=== PATIENT | male | born 1950 | race Caucasian/White ===

== ENCOUNTER 2019-03-06 17:13 | Inpatient (IN) ==
[2019-03-06] MEDS ORDERED: PIPERACILLIN/TAZOBACTAM 3.375 MG in SODIUM CHLORIDE 0.9% 100 ML IV STA (19:50)
[2019-03-06] MEDS ORDERED: ONDANSETRON 4 MG/2 ML VIAL IV PRN (19:52)
[2019-03-06] MEDS ORDERED: MORPHINE 4 MG/1 ML VIAL IV PRN (19:52)
[2019-03-06] MEDS ORDERED: PIPERACILLIN/TAZOBACTAM 3,375 MG in SODIUM CHLORIDE 0.9% 100 ML IV STA (19:59)
[2019-03-06] MEDS ORDERED: DEXTROSE 5% NACL 0.45% 1,000 ML IV SCH (20:00)
[2019-03-06] MEDS ORDERED: PIPERACILLIN/TAZOBACTAM 3,375 MG in SODIUM CHLORIDE 0.9% 100 ML IV SCH (20:00)
[2019-03-07] MEDS: LACTATED RINGERS 1,000 ML IV SCH ×3 (01:00→13:58)
[2019-03-07 05:18] LABS: Basophils % 0.3 % (0.0-0.8); Eosinophils # 0.1 10*3/uL (0.0-0.87); Eosinophils % 0.8 % (0.00-10.9); Hematocrit 43.8 VOL% (42.0-52.0); Hemoglobin 13.9 GM/DL (14.0-18.0); Immature Granulocytes % 0.4 %; Immature Granulocytes Absolute 0.03 #; Lymphocytes % 25.4 % (21.2-54.2); Mean Corpuscular HGB Conc 31.7 GM/DL (32-36); Mean Corpuscular Volume 90.5 FL (87-102); Mean Platelet Volume 10.2 FL (9.6-12.0); Monocytes % 8.1 % (1.7-12.7); Platelet Count 183 T/CUMM (130-400); Red Blood Count 4.84 MC/CUMM (3.8-5.5); Red Cell Distribution Width 14.6 % (9.3-17.3); White Blood Count 7.8 T/CUMM (4-12)
[2019-03-07 05:59] LABS: Albumin 3.1 G/DL (3.4-5.0); Bilirubin,Total 0.9 MG/DL (0.2-1.0); Calcium 8.8 MG/DL (8.5-10.1); Osmolality,Calculated 280.5 MOS/KG (273-304); Total Protein 5.6 G/DL (6.4-8.3)
[2019-03-07] MEDS: PANTOPRAZOLE 40 MG TABLET PO SCH (10:02)
[2019-03-08] MEDS: LACTATED RINGERS 1,000 ML IV SCH ×2 (04:16→12:55)
[2019-03-08] MEDS: PANTOPRAZOLE 40 MG TABLET PO SCH (10:08)
[2019-03-08 13:43] VITALS: BP 134/75
== END 2019-03-08 14:30 | disposition home or self-care (01) | DRG 390 ==
LOC: N.ED 17:13 → N.EDINP 17:13 → N.3E 21:30
PROVIDERS: ADMIT Student in an Organized Health Care Education/Training Program; ATTEND Student in an Organized Health Care Education/Training Program

== ENCOUNTER 2019-05-07 17:38 | Observation (INO) ==
[2019-05-07] MEDS ORDERED: SODIUM CHLORIDE 0.9% 500 ML IV STA (19:00)
[2019-05-07] MEDS ORDERED: PANTOPRAZOLE 40 MG VIAL IV STA (19:00)
[2019-05-07] MEDS ORDERED: HYDROmorphone 2 MG/1 ML VIAL IV STA (19:00)
[2019-05-07] MEDS ORDERED: ONDANSETRON 4 MG/2 ML VIAL IV STA (19:00)
[2019-05-07 19:19] LABS: Basophils % 0.2 % (0.0-0.8); Eosinophils % 0.3 % (0.00-10.9); Hematocrit 43.7 VOL% (42.0-52.0); Hemoglobin 14.6 GM/DL (14.0-18.0); Immature Granulocytes % 0.8 %; Immature Granulocytes Absolute 0.08 #; Lymphocytes # 2.5 10*3/uL (1.4-4.0); Lymphocytes % 25.9 % (21.2-54.2); Mean Corpuscular HGB Conc 33.4 GM/DL (32-36); Mean Corpuscular Volume 87.6 FL (87-102); Monocytes % 7.8 % (1.7-12.7); Platelet Count 198 T/CUMM (130-400); Red Blood Count 4.99 MC/CUMM (3.8-5.5); Red Cell Distribution Width 14.2 % (9.3-17.3); White Blood Count 9.8 T/CUMM (4-12)
[2019-05-07 19:32] LABS: Albumin 3.4 G/DL (3.4-5.0); Bilirubin,Total 0.6 MG/DL (0.2-1.0); Osmolality,Calculated 262.7 MOS/KG (273-304); Total Protein 6.5 G/DL (6.4-8.3)
[2019-05-07] MEDS ORDERED: ALBUTEROL/IPRATROPIUM 3 ML NEB RESP TX STA (19:52)
[2019-05-07] MEDS ORDERED: methylPREDNISolone SOD SUC 125 MG/2 ML VIAL IV STA (19:52)
[2019-05-07 22:32] LABS: Apearance,Urine CLEAR (Clear); Bilirubin,Urine Negative (Negative); Blood, Urine Moderate mg/dL (Negative); Glucose,Urine (UA) Negative (Negative); Ketones,Urine 5 mg/dL (Negative); Nitrite,Urine Negative (Negative); Protein,Urine Negative; RBC,Urine 2 /HPF (0-4); Urine Color Straw (Yellow); Urine Specific Gravity 1.026 (1.001-1.035); Urine Urobilinogen < 2.0 EU/DL (0.2-1.0); WBC,Urine <1 /HPF (0-6)
[2019-05-08] MEDS ORDERED: ONDANSETRON 4 MG/2 ML VIAL IV PRN (01:00)
[2019-05-08] MEDS ORDERED: NICOTINE 21 MG/24 HR PATCH TRANSDERM PRN (01:00)
[2019-05-08] MEDS ORDERED: BISACODYL 5 MG TABLET PO PRN (01:00)
[2019-05-08] MEDS ORDERED: GLUCAGON 1 MG VIAL IM PRN (01:00)
[2019-05-08] MEDS ORDERED: BISACODYL 10 MG SUPP RECTAL PRN (01:00)
[2019-05-08] MEDS ORDERED: DEXTROSE 50% 25 GM/50 ML VIAL IV PRN (01:00)
[2019-05-08] MEDS: SODIUM CHLORIDE 0.9% 1,000 ML IV SCH ×3 (01:35→17:40)
[2019-05-08 05:43] LABS: Hematocrit 43.1 VOL% (42.0-52.0); Hemoglobin 13.9 GM/DL (14.0-18.0); Immature Granulocytes % 0.3 %; Immature Granulocytes Absolute 0.02 #; Lymphocytes # 0.8 10*3/uL (1.4-4.0); Lymphocytes % 13.4 % (21.2-54.2); Mean Corpuscular HGB Conc 32.3 GM/DL (32-36); Mean Corpuscular Volume 89.4 FL (87-102); Mean Platelet Volume 10.2 FL (9.6-12.0); Monocytes % 1.2 % (1.7-12.7); Neutrophils % 85.1 % (38.7-73.9); Platelet Count 172 T/CUMM (130-400); Red Blood Count 4.82 MC/CUMM (3.8-5.5); Red Cell Distribution Width 14.3 % (9.3-17.3); White Blood Count 6.1 T/CUMM (4-12)
[2019-05-08 05:56] LABS: Calcium 8.9 MG/DL (8.5-10.1); Osmolality,Calculated 274.1 MOS/KG (273-304); Risk Ratio 2.28; VLDL CHOLESTEROL 9.2 MG/DL
[2019-05-08] MEDS: INSULIN REGULAR 100 UNIT/ML SUBCUT SCH ×4 (09:15→20:31)
[2019-05-08] MEDS: ENOXAPARIN 40 MG/0.4 ML SYRINGE SUBCUT SCH (09:16)
[2019-05-08] MEDS: HYDROmorphone 2 MG/1 ML VIAL IV PRN ×2 (19:08→23:34)
[2019-05-08] MEDS ORDERED: ENALAPRIL 5 MG TABLET PO SCH (21:00)
[2019-05-08] MEDS ORDERED: METOPROLOL SUCCINATE XL 25 MG TABLET PO SCH (21:00)
[2019-05-09] MEDS: SODIUM CHLORIDE 0.9% 1,000 ML IV SCH ×3 (01:36→18:16)
[2019-05-09 04:15] LABS: Basophils % 0.3 % (0.0-0.8); Eosinophils % 0.5 % (0.00-10.9); Hematocrit 38.6 VOL% (42.0-52.0); Hemoglobin 12.3 GM/DL (14.0-18.0); Immature Granulocytes % 0.5 %; Immature Granulocytes Absolute 0.04 #; Lymphocytes # 2.5 10*3/uL (1.4-4.0); Lymphocytes % 32.8 % (21.2-54.2); Mean Corpuscular HGB Conc 31.9 GM/DL (32-36); Mean Corpuscular Volume 91.9 FL (87-102); Monocytes % 8.6 % (1.7-12.7); Neutrophils % 57.3 % (38.7-73.9); Platelet Count 165 T/CUMM (130-400); Red Cell Distribution Width 14.6 % (9.3-17.3); White Blood Count 7.8 T/CUMM (4-12)
[2019-05-09 04:18] LABS: Calcium 8.4 MG/DL (8.5-10.1); Osmolality,Calculated 282.3 MOS/KG (273-304)
[2019-05-09] MEDS: INSULIN REGULAR 100 UNIT/ML SUBCUT SCH ×3 (09:29→16:45)
[2019-05-09] MEDS: ENOXAPARIN 40 MG/0.4 ML SYRINGE SUBCUT SCH (09:33)
[2019-05-09] MEDS ORDERED: POLYETHYLENE GLYCOL POWDER 17 GM PACK PO SCH (10:30)
[2019-05-09 17:28] VITALS: BP 108/59
== END 2019-05-09 18:19 | disposition home or self-care (01) ==
LOC: N.EDINP 17:38 → N.ED 17:38 → N.3E 05-08 00:18
PROVIDERS: ADMIT Internal Medicine; ATTEND Internal Medicine